=== PATIENT | male | born 1945 | race Caucasian/White ===

== ENCOUNTER → 2016-07-24 | Outpatient (CLI) | payer MEDICARE, OTHER | END | disposition home or self-care (01) | LOC: GMAL 08:42 | PROVIDERS: ATTEND Family Medicine | DX: D51.3 Other dietary vitamin B12 deficiency anemia (principal); N17.8 Other acute kidney failure; M25.50 Pain in unspecified joint; N18.4 Chronic kidney disease, stage 4 (severe) ==

== ENCOUNTER → 2017-01-31 | Outpatient (CLI) | payer MEDICARE, OTHER | END | disposition home or self-care (01) | LOC: GMAL 16:54 | PROVIDERS: ATTEND Family Medicine | DX: I50.9 Heart failure, unspecified (principal); E88.40 Mitochondrial metabolism disorder, unspecified; N18.3 Chronic kidney disease, stage 3 (moderate); M79.1 Myalgia ==

== ENCOUNTER → 2017-05-23 | Outpatient (CLI) | payer MEDICARE, OTHER | LOC: GMAL 10:34 | PROVIDERS: ATTEND Family Medicine | DX: I50.89 Other heart failure (principal); N18.3 Chronic kidney disease, stage 3 (moderate) ==

== ENCOUNTER → 2017-09-23 | Outpatient (CLI) | payer MEDICARE, OTHER | LOC: GMAL 10:54 | PROVIDERS: ATTEND Family Medicine | DX: D51.3 Other dietary vitamin B12 deficiency anemia (principal); N18.4 Chronic kidney disease, stage 4 (severe); M60.009 Infective myositis, unspecified site; M25.50 Pain in unspecified joint; E55.9 Vitamin D deficiency, unspecified; Z79.899 Other long term (current) drug therapy ==

== ENCOUNTER → 2018-03-03 | Outpatient (CLI) | payer MEDICARE, OTHER | LOC: GMAL 11:40 | PROVIDERS: ATTEND Family Medicine | DX: D51.3 Other dietary vitamin B12 deficiency anemia (principal); N18.4 Chronic kidney disease, stage 4 (severe); M60.009 Infective myositis, unspecified site; M25.50 Pain in unspecified joint; E55.9 Vitamin D deficiency, unspecified ==

== ENCOUNTER → 2018-07-25 | Outpatient (CLI) | payer MEDICARE, OTHER | LOC: GMAL 09:32 | PROVIDERS: ATTEND Family Medicine | DX: I12.9 Hypertensive chronic kidney disease with stage 1 through stage 4 chronic kidney disease, or unspecified chronic kidney disease (principal); N18.4 Chronic kidney disease, stage 4 (severe) ==

== ENCOUNTER → 2019-01-20 | Outpatient (CLI) | payer MEDICARE, OTHER | LOC: GMAL 09:37 | PROVIDERS: ATTEND Family Medicine | DX: I10 Essential (primary) hypertension (principal); E83.42 Hypomagnesemia; N18.4 Chronic kidney disease, stage 4 (severe); M25.50 Pain in unspecified joint ==

== ENCOUNTER → 2019-08-27 | Outpatient (CLI) | payer MEDICARE, OTHER | LOC: GMAL 14:42 | PROVIDERS: ATTEND Family Medicine | DX: I10 Essential (primary) hypertension (principal); E83.42 Hypomagnesemia; N18.4 Chronic kidney disease, stage 4 (severe); M25.50 Pain in unspecified joint ==

== ENCOUNTER 2020-01-13 14:28 | Inpatient (IN) | payer MEDICARE, OTHER ==
--- NOTE | 2020-01-13 14:30 | HP ---
SUPERVISING PHYSICIAN: Martin Guerrero M.D. CHIEF COMPLAINT: Right forearm swelling. HISTORY OF PRESENT ILLNESS: This is a 74 year-old male patient who went to his primary care physician's office today for right forearm swelling and redness. He said that he was scratched by a cat last . On Saturday he had fallen and tried to catch himself and developed some right wrist pain as well. He was seen in the clinic and placed on azithromycin, however there was no significant improvement. He was then placed on Cipro earlier this week and continued to not have any significant improvement, therefore he went back today with increased swelling and redness. In the clinic, he had a fever of 102.7, therefore he was referred for joint admission by Dr. Metzger. At time of examination, the patient is alert and oriented. He does have significant edema to the right hand as well as erythema which extends throughout the forearm nearly to the elbow. He does not have full range of motion of that wrist either. An x-ray was done of that wrist which shows no fracture. PAST MEDICAL HISTORY: 1. Hypertension. 2. Chronic renal insufficiency. 3. Type 2 diabetes mellitus. 4. Hyperparathyroidism. 5. Mitochondrial myopathy. 6. Presbycusis. PAST SURGICAL HISTORY: 1. Appendectomy. 2. Tonsillectomy and adenoidectomy. 3. Dual chamber pacemaker. 4. Colonoscopy. 5. Echocardiogram as recently as 2017 which showed an ejection fraction of 35%. CURRENT MEDICATIONS: Please see Med. Rec. list once verified in the computer. ALLERGIES: FENTANYL. FAMILY HISTORY: Father at age 72 of a myocardial infarction and multiple sclerosis. Mother at age 60 of lung cancer. Brother with cardiovascular disease. SOCIAL HISTORY: Quit smoking in the . [place] infrequent alcohol use. No illegal drugs. 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 REVIEW OF SYSTEMS: CONSTITUTIONAL: Positive for fever and chills. No recent weight loss or weight gain. HEENT: No headaches, vision changes, ear pain, nasal congestion or throat pain. NECK: No neck stiffness, swelling or neck pain. RESPIRATORY: No cough, hemoptysis or pleuritic chest pain. CARDIOVASCULAR: No chest pain, palpitations or peripheral edema. GASTROINTESTINAL: No nausea, vomiting, diarrhea, constipation or abdominal pain. GENITOURINARY: No dysuria, frequency or flank pain. ENDOCRINE: No polydipsia, polyuria or polyphagia. No heat or cold intolerance. MUSCULOSKELETAL: He has some right wrist pain. No other joint pain or joint swelling or muscle cramps. SKIN: Positive for erythema and edema of the right forearm secondary to the cat scratch. No other lesions or wounds. 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 PHYSICAL EXAMINATION: CONSTITUTIONAL: The patient is a 74 year-old male patient in no active distress. NEUROLOGIC: The patient is alert and oriented. LUNGS: Clear to auscultation bilaterally. CARDIOVASCULAR: Regular rate and rhythm. Normal S1, S2. ABDOMEN: Soft. Positive bowel sounds. EXTREMITIES: Lower extremities with no edema. 2+ pulses. Capillary refill is less than 2 seconds. Right forearm erythematous with edematous hand as well. No active draining lesions are noted. ASSESSMENT: 1. Right forearm cellulitis with failed outpatient therapy secondary to a cat scratch. 2. Hypertension. 3. Diabetes mellitus type 2. 4. 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 5. Cardiomyopathy with dual chamber pacemaker with no evidence of acute congestive heart failure at this time. PLAN: The patient had failed outpatient therapy with azithromycin and Cipro. I will place the patient on Doxycycline and vancomycin being careful to monitor renal function. Will monitor cultures and deescalate when possible. Restart his home medications when they are verified in the computer as well. [facility][id number] [facility]
[2020-01-13] MEDS ORDERED: SODIUM CHLORIDE 0.9% (FLUSH) 10 ML SYG IV PRN (15:03)
[2020-01-13] MEDS ORDERED: ACETAMINOPHEN 325 MG TAB PO PRN (15:03)
[2020-01-13] MEDS ORDERED: VANCOMYCIN PER PHARMACY INJ SCH (15:30)
[2020-01-13] MEDS: LACTATED RINGERS 1,000 ML IVS PRN (16:09)
[2020-01-13] MEDS: IV SET AND CAP CHANGE INJ INJ SCH (16:10)
[2020-01-13] MEDS: DOXYCYCLINE HYCLATE IV 100 MG in SODIUM CHLORIDE 0.9% 250ML 250 ML IVPB SCH (16:10)
[2020-01-13] MEDS: VANCOMYCIN HCL INJ 750 MG in SODIUM CHLORIDE 0.9% 250ML 250 ML IVPB SCH (18:21)
[2020-01-13] MEDS ORDERED: ACETAMINOPHEN PO PRN (20:07)
[2020-01-13] MEDS ORDERED: CODEINE PO PRN (20:07)
[2020-01-13] MEDS ORDERED: ATORVASTATIN 20 MG TAB PO ONE (20:45)
[2020-01-13] MEDS ORDERED: NON-FORMULARY MEDICATION 1 EA MIS (Atorvastatin Calcium [Atorvastatin Calcium] 40 MG) PO SCH (21:00)
[2020-01-14] MEDS: DOXYCYCLINE HYCLATE IV 100 MG in SODIUM CHLORIDE 0.9% 250ML 250 ML IVPB SCH (04:00)
[2020-01-14] MEDS ORDERED: METOPROLOL TARTRATE 50 MG TAB ONE (08:30)
[2020-01-14] MEDS ORDERED: ACETAMINOPHEN W/COD #3 TAB 1 EA TAB ONE (08:30)
[2020-01-14] MEDS: CALCITRIOL 0.25 MCG CAP PO SCH (08:38)
[2020-01-14] MEDS ORDERED: METOPROLOL TARTRATE 50 MG PO SCH (09:00)
[2020-01-14] MEDS ORDERED: SODIUM CHL 0.9% 100ML MINI-BAG 100 ML IVPB ONE (12:31)
[2020-01-14] MEDS ORDERED: AMPICILLIN & SULBACTAM SODIUM 3 GM VIAL ONE (12:31)
[2020-01-14] MEDS: AMPICILLIN & SULBACTAM SODIUM 3 GM in SODIUM CHL 0.9% 100ML MINI-BAG 100 ML IVPB SCH ×2 (12:35→19:24)
[2020-01-14] MEDS: LACTATED RINGERS 1,000 ML IVS PRN (12:35)
[2020-01-14] MEDS: VANCOMYCIN HCL INJ 750 MG in SODIUM CHLORIDE 0.9% 250ML 250 ML IVPB SCH (16:34)
[2020-01-14] MEDS ORDERED: MAGNESIUM HYDROXIDE 30 ML UD ONE (19:19)
[2020-01-14] MEDS ORDERED: ENOXAPARIN SODIUM 40 MG/0.4 ML SYG SUBCU ONE (19:19)
[2020-01-14] MEDS ORDERED: ATORVASTATIN 20 MG TAB PO ONE (19:19)
[2020-01-14] MEDS: ATORVASTATIN 20 MG TAB PO SCH (21:05)
[2020-01-14] MEDS: MAGNESIUM HYDROXIDE 30 ML UD PO SCH (21:05)
[2020-01-14] MEDS: ENOXAPARIN SODIUM 40 MG/0.4 ML SYG SUBCU SCH (21:06)
[2020-01-15] MEDS: AMPICILLIN & SULBACTAM SODIUM 3 GM in SODIUM CHL 0.9% 100ML MINI-BAG 100 ML IVPB SCH ×4 (00:05→18:26)
[2020-01-15] MEDS ORDERED: BIFIDOBACTERIUM INFANTIS 4 MG CAP ONE (07:07)
[2020-01-15] MEDS ORDERED: METOPROLOL TARTRATE 50 MG TAB ONE (07:08)
--- NOTE | 2020-01-15 08:51 | PN ---
SUPERVISING PHYSICIAN: Martin Guerrero MD DATE: 01/14/20 SUBJECTIVE: The patient seems to be doing pretty good. He has not had any complaints. He says the right hand is still sore, still swollen. He has been afebrile. No nausea or vomiting. No chest pain. OBJECTIVE: VITAL SIGNS: T-max 99.0, pulse 102, blood pressure 164/84, respirations 16, saturation 95% on room air. GENERAL: The patient was resting comfortably, did not look to be in any distress. CHEST: Lungs are clear to auscultation bilaterally. HEART: Regular rate and rhythm. ABDOMEN: Soft, nontender. EXTREMITIES: Right wrist swollen with mild erythema overlying the dorsal aspect with no obvious signs of abscess formation. Wrist is warm to palpation. Swelling does extend from his fingers up past the wrist to midforearm. Pulses 2+ bilaterally on the radial side. NEUROLOGIC: Alert and oriented times three. SKIN: Positive for erythema and edema on the right forearm and wrist. No obvious other lesions or wounds. LABORATORY: White count 7,700, hemoglobin 11.2, hematocrit 33.3, platelet count 238,000. Differential without a left shift today. Chemistry shows normal electrolytes. Creatinine down to 1.94, BUN 48, calcium 8.9, magnesium 1.9. MICROBIOLOGY: Blood cultures remain negative at 24 hours. RADIOLOGY: No additional radiographic studies were pending. ASSESSMENT: 1. Right forearm cellulitis secondary to a cat scratch with failed outpatient therapy. 2. Hypertension. 3. Diabetes mellitus, type 2. 4. 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 5. Cardiomyopathy with dual chamber pacemaker with no evidence of acute congestive heart failure at this time. PLAN: I did talk to Dr. Mabry this morning. She recommended we keep the vancomycin, but stop the doxycycline and put him on Unasyn given the origin of the infection is likely a cat scratch. He was not able to tell me when he had his last tetanus. I will talk to Dr. Metzger' office and see if he needs to be updated on that. I anticipate probably a good 24 to 48 hours before he will be able to discharge. Hopefully, we will be able to transition to oral medications, but certainly given his age, comorbidities and diabetes, he may need to be longer term antibiotics and IV. Until the patient can transition to outpatient management, we will continue to monitor and treat as needed. #[id number] [facility]
[2020-01-15] MEDS: BIFIDOBACTERIUM INFANTIS 4 MG CAP PO SCH (08:58)
[2020-01-15] MEDS: CALCITRIOL 0.25 MCG CAP PO SCH (08:58)
[2020-01-15] MEDS: METOPROLOL TARTRATE 50 MG TAB PO SCH (08:59)
[2020-01-15] MEDS: ACETAMINOPHEN W/COD #3 TAB 1 EA TAB PO PRN (09:57)
[2020-01-15] MEDS ORDERED: TETANUS,DIPHTHERIA,PERTUSSIS 1 EA SYG IM ONE ×2 (10:29→11:21)
--- NOTE | 2020-01-15 15:35 | CT ---
EXAM DESCRIPTION: Upper Extremity w/wo Contrast CLINICAL HISTORY: 74 years Male, cellulitis right wrist r/t cat scratch TECHNIQUE: This exam was performed according to our departmental dose-optimization program, which includes automated exposure control, adjustment of the mA and/or kV according to patient size and/or use of iterative reconstruction technique. COMPARISON: 01/09/2020 FINDINGS: Evaluation markedly limited by image quality and technique. Poor technique and contrast enhancement also limits evaluation. There is no fracture identified. Scattered degenerative changes. Diffuse vascular calcifications. There is subcutaneous edema diffusely throughout the upper extremity. A fluid collection cannot be excluded based on the images provided. IMPRESSION: Subcutaneous edema about the right wrist. A fluid collection cannot be excluded based on the images provided. Consider repeat imaging as indicated. Electronically signed by: Ricky Zurita MD 01/15/2020 3:33 PM CDT
[2020-01-15] MEDS: VANCOMYCIN HCL INJ 750 MG in SODIUM CHLORIDE 0.9% 250ML 250 ML IVPB SCH ×2 (16:09→16:47)
--- NOTE | 2020-01-15 20:10 | PN ---
SUPERVISING PHYSICIAN: Martin Guerrero M.D. DATE: 01/15/20 SUBJECTIVE: The patient is sitting in the bedside chair resting comfortably. Does not look to be in any distress. He is alert. He notes that he had a fairly good night's sleep with good pain control overnight. He remains afebrile. OBJECTIVE: VITAL SIGNS: Temperature 98, pulse 75, blood pressure 122/78, respirations 18, satting 94% on room air. GENERAL: The patient is resting comfortably. Does not look to be in any distress. CHEST: Clear to auscultation. HEART: Regular rate and rhythm. ABDOMEN: Soft, non-tender. Positive bowel sounds. EXTREMITIES: Right arm shows some erythema overlying the right wrist compared to yesterday. The arm looks like it is a little bit less swollen, especially in the forearm region compared to his left. Distally radial pulses were 2+. No reported neurosensory deficits. NEUROLOGIC: He is alert and oriented times three. SKIN: Warm, pink and dry, except for the noted erythema overlying the right wrist. LABORATORY: Chemistries are showing normal electrolytes today with BUN of 45, creatinine is down to 1.72, calcium 8.6. RADIOLOGY: There is a CT of the wrist pending. ASSESSMENT: 1. Right forearm cellulitis secondary to a cat scratch with failed outpatient therapy. 2. Hypertension. 3. Diabetes mellitus, type 2. 4. 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 5. Cardiomyopathy with dual chamber pacemaker with no evidence of acute congestive heart failure at this time. PLAN: The patient remains on vancomycin and Unasyn. I have tried to get hold of Dr. Metzger' office to see if he is up to his tetanus but they were unable to find any recent records, therefore will go ahead and give him a TDAP administration today. He does remain on Align. He is on DVT prophylaxis. Will continue with current plan of care with the vancomycin and the Cefepime, and reevaluate tomorrow. Hopefully he will be able to discharge home. Until then will continue to monitor and treat as needed. #[id number] [facility]
[2020-01-15] MEDS: MAGNESIUM HYDROXIDE 30 ML UD PO SCH (20:34)
[2020-01-15] MEDS: ATORVASTATIN 20 MG TAB PO SCH (20:34)
[2020-01-15] MEDS: ENOXAPARIN SODIUM 40 MG/0.4 ML SYG SUBCU SCH (20:35)
[2020-01-16] MEDS: AMPICILLIN & SULBACTAM SODIUM 3 GM in SODIUM CHL 0.9% 100ML MINI-BAG 100 ML IVPB SCH ×4 (00:46→18:12)
[2020-01-16] MEDS: ACETAMINOPHEN W/COD #3 TAB 1 EA TAB PO PRN (05:46)
[2020-01-16] MEDS: CALCITRIOL 0.25 MCG CAP PO SCH (08:12)
[2020-01-16] MEDS: METOPROLOL TARTRATE 50 MG TAB PO SCH (08:12)
[2020-01-16] MEDS: BIFIDOBACTERIUM INFANTIS 4 MG CAP PO SCH (08:12)
--- NOTE | 2020-01-16 11:46 | PN ---
SUPERVISING PHYSICIAN: Martin Guerrero M.D. DATE: 01/16/20 SUBJECTIVE: The patient is doing well this morning. He had a bowel movement yesterday. His hand is not quite as sore as it was on admission and actually can see that the edema is decreasing. He still has a little redness in the area overlying the wrist. Otherwise, no other complaints. He remains afebrile. Vital signs remain stable. OBJECTIVE: VITAL SIGNS: Temperature 98.1, pulse 74, blood pressure 135/67, respirations 20, satting 94% on room air. GENERAL: The patient is resting comfortably. Does not look to be in any distress. He is alert. CHEST: Clear to auscultation. HEART: Regular rate and rhythm. ABDOMEN: Soft, non-tender. Positive bowel sounds. EXTREMITIES: Right arm/wrist shows decrease in erythema as well as swelling. There is still trace of edema overlying the wrist. He is able to make a fist this morning much easier than he did yesterday. No obvious signs of drainage or fluid collection. Radial pulses were 2+ bilaterally. NEUROLOGIC: He is alert and oriented times three. LABORATORY: Chemistries are showing stable electrolytes with BUN of 46, creatinine up a little bit to 1.8 from yesterday but C-reactive protein is down to 16.9. MICROBIOLOGY: Blood cultures remain negative at 24 hours. RADIOLOGY: There is a CT of the wrist per radiology interpretation shows subcutaneous edema about the right wrist but fluid collection could not be excluded based on the images provided. ASSESSMENT: 1. Right forearm cellulitis secondary to cat scratch fever failed outpatient therapy, showing good improve on parenteral antibiotics with Unasyn and vancomycin. 2. Hypertension. 3. Diabetes mellitus, type 2. 4. 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 5. Cardiomyopathy with dual chamber pacemaker with no evidence of acute congestive heart failure at this time. PLAN: Will continue with current plan of care with vancomycin and Unasyn. I did discuss the case with the patient's daughter. Plan of care at this point is to keep him hopefully until Saturday at which time he can discharge. Continue with oral medications. I did give him TDAP shot yesterday as I could not find an updated list of his immunizations and he was not sure when he had his last TDAP injection. He remains on DVT prophylaxis, Align. Until we can transition patient to outpatient management, we will continue to monitor and treat as needed. [facility][id number] [facility]
[2020-01-16] MEDS: VANCOMYCIN HCL INJ 750 MG in SODIUM CHLORIDE 0.9% 250ML 250 ML IVPB SCH (15:55)
[2020-01-16] MEDS: IV SET AND CAP CHANGE INJ INJ SCH (16:00)
[2020-01-16] MEDS: ENOXAPARIN SODIUM 40 MG/0.4 ML SYG SUBCU SCH (21:28)
[2020-01-16] MEDS: MAGNESIUM HYDROXIDE 30 ML UD PO SCH (21:28)
[2020-01-16] MEDS: ATORVASTATIN 20 MG TAB PO SCH (21:28)
[2020-01-17] MEDS: AMPICILLIN & SULBACTAM SODIUM 3 GM in SODIUM CHL 0.9% 100ML MINI-BAG 100 ML IVPB SCH ×4 (00:45→19:24)
[2020-01-17] MEDS: ACETAMINOPHEN W/COD #3 TAB 1 EA TAB PO PRN (01:03)
[2020-01-17] MEDS ORDERED: AMPICILLIN & SULBACTAM SODIUM 3 GM VIAL ONE (04:22)
[2020-01-17] MEDS: METOPROLOL TARTRATE 50 MG TAB PO SCH (09:08)
[2020-01-17] MEDS: CALCITRIOL 0.25 MCG CAP PO SCH (09:08)
[2020-01-17] MEDS: BIFIDOBACTERIUM INFANTIS 4 MG CAP PO SCH (09:08)
[2020-01-17] MEDS: VANCOMYCIN HCL INJ 750 MG in SODIUM CHLORIDE 0.9% 250ML 250 ML IVPB SCH (15:38)
[2020-01-17] MEDS: ENOXAPARIN SODIUM 40 MG/0.4 ML SYG SUBCU SCH (22:11)
[2020-01-17] MEDS: ATORVASTATIN 20 MG TAB PO SCH (22:11)
[2020-01-17] MEDS: MAGNESIUM HYDROXIDE 30 ML UD PO SCH (22:11)
[2020-01-18] MEDS: AMPICILLIN & SULBACTAM SODIUM 3 GM in SODIUM CHL 0.9% 100ML MINI-BAG 100 ML IVPB SCH ×4 (00:43→19:09)
[2020-01-18] MEDS: ACETAMINOPHEN W/COD #3 TAB 1 EA TAB PO PRN (07:41)
[2020-01-18] MEDS: BIFIDOBACTERIUM INFANTIS 4 MG CAP PO SCH (08:31)
[2020-01-18] MEDS: METOPROLOL TARTRATE 50 MG TAB PO SCH (08:31)
[2020-01-18] MEDS: CALCITRIOL 0.25 MCG CAP PO SCH (08:31)
--- NOTE | 2020-01-18 09:01 | PN ---
SUPERVISING PHYSICIAN: Martin Guerrero M.D. DATE: 01/17/20 SUBJECTIVE: The patient seems to be doing pretty good. He says he has been requiring some pain management because he has been having some pain in that right wrist still. He has not had any other complaints, no nausea, vomiting, no diarrhea. OBJECTIVE: VITAL SIGNS: Temperature 98.3, pulse 74, blood pressure 157/79, respirations 16, satting 95% on room air. GENERAL: The patient is resting comfortably. Does not look to be in any distress. He is alert. CHEST: Clear to auscultation. HEART: Regular rate and rhythm. ABDOMEN: Soft, nontender. Positive bowel sounds. EXTREMITIES: Right arm/wrist shows decrease in erythema as well as swelling. There is still trace of edema overlying the wrist. He is able to make a fist this morning much easier than he did yesterday. No obvious signs of drainage or fluid collection. Radial pulses were 2+ bilaterally. NEUROLOGIC: He is alert and oriented times three. LABORATORY: We will repeat a BNP in the morning. RADIOLOGY: No additional radiographic studies. ASSESSMENT: 1. Right forearm cellulitis secondary to cat scratch fever failed outpatient therapy, showing good improve on parenteral antibiotics with Unasyn and vancomycin. 2. Hypertension. 3. Diabetes mellitus, type 2. 4. 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 5. Cardiomyopathy with dual chamber pacemaker with no evidence of acute congestive heart failure at this time. PLAN: Will continue with vancomycin and Unasyn for antibiotic coverage. I would anticipate he will be able to go home today. We will repeat his labs and make sure his creatinine remains stable and C-reactive protein is still trending down. Given his myocardial myitis, he may be slow to respond as far as inflammatory response to the cellulitis. Exam does not show any signs of an abscess and did not really see anything on CT. It might be a good idea to run the CT by Dr. Rubin to see if he sees anything and if he might actually follow the patient as an outpatient or at least call Dr. Metzger and see what he suggests. I figure he can go home if he is looking good tomorrow on continued antibiotics with doxycycline with Augmentin. He will certainly need to go home on a probiotic, but as far as duration, we probably need to run it by Dr. Mabry, at least by Dr. Metzger since he has been on multiple antibiotics over the last week for treatment of this problem. Again, hopefully we can discharge him in the morning. Otherwise, he is doing pretty good. I did order a physical therapy consult considering he utilizes a walker and that wrist is pretty painful and make sure that he is safe and can ambulate. Until then, we will continue to monitor and treat as needed. #[id number] [facility]
[2020-01-18] MEDS: VANCOMYCIN HCL INJ 750 MG in SODIUM CHLORIDE 0.9% 250ML 250 ML IVPB SCH (17:03)
--- NOTE | 2020-01-18 19:22 | PN ---
SUPERVISING PHYSICIAN: Rajinder Gleason MD DATE: 01/18/20 SUBJECTIVE: The patient is sitting up in his bed. He has much more mobility with his hand than he did yesterday. His is at the bedside. He is somewhat concerned that there is a small amount of redness and swelling around his elbow but looks mostly like dependent edema. He denies chest pain, nausea or vomiting. OBJECTIVE: VITAL SIGNS: Temperature 97.6, heart rate 89, blood pressure 160/78, respiratory rate 18, oxygen saturation 97% on room air. RESPIRATORY: Essentially clear to auscultation bilaterally. CARDIAC: Regular rate and rhythm. EXTREMITIES: Right hand is somewhat swollen, slightly warm to the touch. There is some edema abound the wrist area with a small amount of dependent edema at the proximal part of the forearm. He is able to make a fist and there is no fluid or drainage noted. There are no red streaks. NEUROLOGICAL: He is awake, alert, and oriented x3. LABORATORY: Electrolytes are basically within normal limits. BUN 38, creatinine 1.86, CRP 12.9. All other labs and films have been reviewed via the EMR. ASSESSMENT: 1. Right forearm cellulitis secondary to cat scratch fever failed outpatient therapy, showing good improve on parenteral antibiotics with Unasyn and vancomycin. 2. Hypertension. 3. Diabetes mellitus, type 2. 4. 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 5. Cardiomyopathy with dual chamber pacemaker with no evidence of acute congestive heart failure at this time. PLAN: We will continue the vancomycin and Unasyn. I spoke with his primary care physician, Dr. Metzger, and he agreed with the recommendations per radiology that he have a repeat CT scan and continue on IV antibiotics through tomorrow morning. He will have close followup with him later this week after discharge. Send him home on coverage for staph and will treat and follow as needed. #[id number] [facility]
--- NOTE | 2020-01-18 20:05 | CT ---
CT UPPER EXTREMITY WITHOUT THEN WITH IV CONTRAST HISTORY: Cellulitis COMPARISON: None. TECHNIQUE: CT scan of the upper extremity was performed with IV contrast. This exam was performed according to our departmental dose-optimization program, which includes automated exposure control, adjustment of the mA and/or kV according to patient size and/or use of iterative reconstruction technique. FINDINGS: There is diffuse subcutaneous edema overlying the upper extremity. No rim-enhancing fluid collection or abscess is identified. No foreign bodies are seen. The muscles and tendons are grossly preserved without abnormal intramuscular edema or collection. No acute fracture or dislocation is seen. There is no cortical erosion or periosteal reaction to suggest acute osteomyelitis. IMPRESSION: 1. Diffuse swelling of the upper extremity which may represent cellulitis. 2. No abscess, foreign body, or osteomyelitis. 3. No acute fracture is seen. Electronically signed by: Carlos Mosley MD 01/18/2020 8:04 PM CDT
[2020-01-18] MEDS: ATORVASTATIN 20 MG TAB PO SCH (21:05)
[2020-01-18] MEDS: ENOXAPARIN SODIUM 40 MG/0.4 ML SYG SUBCU SCH (21:06)
[2020-01-18] MEDS: MAGNESIUM HYDROXIDE 30 ML UD PO SCH (21:06)
[2020-01-19] MEDS: AMPICILLIN & SULBACTAM SODIUM 3 GM in SODIUM CHL 0.9% 100ML MINI-BAG 100 ML IVPB SCH ×2 (00:34→06:20)
[2020-01-19] MEDS: CALCITRIOL 0.25 MCG CAP PO SCH (08:34)
[2020-01-19] MEDS: METOPROLOL TARTRATE 50 MG TAB PO SCH (08:34)
[2020-01-19] MEDS: BIFIDOBACTERIUM INFANTIS 4 MG CAP PO SCH (08:34)
[2020-01-19 09:48] VITALS: BP 147/74; TEMP 98.4; O2SAT 96
[2020-01-19] MEDS: ACETAMINOPHEN W/COD #3 TAB 1 EA TAB PO PRN (10:24)
--- NOTE | 2020-01-19 15:07 | DS ---
SUPERVISING PHYSICIAN: Rajinder Gleason MD DISCHARGE DIAGNOSIS: 1. Right forearm cellulitis secondary to cat scratch, failed outpatient therapy, showing good improvement on parenteral antibiotics with Unasyn and vancomycin. 2. Hypertension. 3. Diabetes mellitus, type 2. 4. 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 5. Cardiomyopathy with dual chamber pacemaker with no evidence of acute congestive heart failure at this time. HISTORY OF PRESENT ILLNESS: This is a 74-year-old male patient who went to his primary care physician's office due to right forearm swelling and redness. He said that he was scratched by a cat prior to his admission. The next day, he had fallen and tried to catch himself and developed some right wrist pain as well. He was seen in the clinic and placed on azithromycin, but there was no significant improvement. He was then placed on Cipro and again had no significant improvement. He went back to his his primary care physician, Dr. Metzger, and he had a temperature of 102.7. He was referred for direct admission. HOSPITAL COURSE: The patient was admitted to the hospital in stable condition because he had failed outpatient therapy on azithromycin and Cipro. He was initially placed on doxycycline and vancomycin with careful monitoring of his renal function. His home medications were restarted. Dr. Mabry, Infectious Disease physician in [place], was consulted and she recommended the vancomycin be continued, but that the doxycycline be stopped and heshould be placed on Unasyn given that the origin of the infection was likely a cat scratch. He was updated on his tetanus. He continued to have some swelling in that right wrist, but it slowly improved. 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 He is also on Align as well as DVT prophylaxis. He did elevate his arm and the swelling diminished greatly although there was some increase in swelling noted in the elbow area. He had a physical therapy evaluation because he is quite unsteady on his feet and uses a walker at home. Physical therapy thought he was safe to use his walker although he is very slow. A followup CT of that arm was obtained to monitor improvement. I spoke with Dr. Yoel Greenberg, radiologist, who compared his initial right arm CT with the CT done today and he felt that there was some subcutaneous edema still present, but it had improved since his initial CT. Due to the patient's inability to position himself, the first CT had poor quality pictures. There is minimal swelling and erythema to the wrist and after discussion with his primary care physician, it was decided he would be discharged home in stable condition with close followup with his primary care physician, Dr. Metzger. LABORATORY: WBCs remained stable at 8.3, 7.7 and 9.6 with a hemoglobin of 9.7 and hematocrit 28.6. Initially, there was a left shift on differential, but that has normalized. His electrolytes were basically within normal limits. His creatinine was 2.24 on admission, but with fluids it has come down to 1.72. His baseline creatinine is about 1.7 to 1.8. Initial C-reactive protein was 21.5 and it decreased each day and today it is 10.9. Stool for occult blood was positive. Stool for Giardia antigen is pending. His final blood culture showed no growth after 5 days. His stool for Clostridium difficile was negative for the antigen and the toxin. Fecal WBCs were also negative. RADIOLOGY: His final upper extremity CT shows 1) Diffuse swelling of the upper extremity which may represent cellulitis. 2) No abscess, foreign body or osteomyelitis. 3) No acute fracture seen. DISCHARGE PLAN: The patient will be discharged home in stable condition. He will have [facility]. He is to resume his previous diet and increase his activity as tolerated. I spoke with Dr. Mabry, Infectious Diseases, and she recommended he be sent home on Augmentin as well as doxycycline. I have also refilled his acetaminophen with codeine #3. I checked with [facility] and there are no concerns noted. He will see Dr. Metzger on 01/21/20 at 1:30 PM. In addition to his home medications, he will be on Augmentin, doxycycline, acetaminophen with codeine and Align. He is to return to the hospital or followup with Dr. Metzger for any problems or complications. DISCHARGE MEDICATIONS: 1. Atorvastatin. 2. Calcitrol. 3. Tylenol No. 3. 4. Metoprolol tartrate. 5. Alogliptin. 6. Align. 7. Augmentin. 8. Doxycycline. #[id number] [facility]
== END 2020-01-19 11:10 | disposition home health service (06) | DRG 603 ==
LOC: OBSVTOIN 14:28 → MS 14:28
PROVIDERS: ADMIT Nurse Practitioner; ATTEND Nurse Practitioner Acute Care
PROC: BP2T1ZZ Computerized Tomography (CT Scan) of Right Upper Extremity using Low Osmolar Contrast (ICD-10-PCS; principal; 2020-01-18)
DX: L03.113 Cellulitis of right upper limb (principal); I42.9 Cardiomyopathy, unspecified; I12.9 Hypertensive chronic kidney disease with stage 1 through stage 4 chronic kidney disease, or unspecified chronic kidney disease; E11.22 Type 2 diabetes mellitus with diabetic chronic kidney disease; E21.3 Hyperparathyroidism, unspecified; G71.3 Mitochondrial myopathy, not elsewhere classified; N18.9 Chronic kidney disease, unspecified; Z95.0 Presence of cardiac pacemaker; Z88.5 Allergy status to narcotic agent; Z87.891 Personal history of nicotine dependence

== ENCOUNTER → 2020-01-21 | Outpatient (CLI) | payer MEDICARE, OTHER | LOC: GMAL 16:40 | PROVIDERS: ATTEND Family Medicine | DX: L03.113 Cellulitis of right upper limb (principal) ==

== ENCOUNTER → 2020-01-25 | Outpatient (CLI) | payer MEDICARE, OTHER | LOC: GMAL 14:29 | PROVIDERS: ATTEND Family Medicine | DX: L03.113 Cellulitis of right upper limb (principal) ==

== ENCOUNTER → 2020-03-21 | Outpatient (CLI) | payer MEDICARE, OTHER | LOC: GMAL 17:01 | PROVIDERS: ATTEND Family Medicine | DX: D51.3 Other dietary vitamin B12 deficiency anemia (principal); I10 Essential (primary) hypertension; E55.9 Vitamin D deficiency, unspecified; E11.9 Type 2 diabetes mellitus without complications; E78.49 Other hyperlipidemia; I50.9 Heart failure, unspecified ==